=== PATIENT | male | born 1960 | race Caucasian/White ===

== ENCOUNTER 2017-04-26 12:07 | Outpatient (CLI) | payer BC ==
--- NOTE | 2017-04-26 16:42 | Diagnostic Imaging Report ---
Indication: Osteoporosis Technique: 10 mm thick slices obtained through the L2, L3, and L4 vertebral bodies. Cortical and trabecular regions of interest were drawn. The average trabecular bone mineral density was calculated. Total dose length product 51 mGycm. CTDIvol(s) 21, 21, 3, 3, 3 mGy. Dose reduction achieved using automated exposure control Comparison: 12/22/2012 Findings: The calculated bone mineral density is 97.8 mg ca-STRONG/ml. The T score is -2.9. This indicates the patient's bone mineral density is 2.9 standard deviations below that of normal 20-year-old males. The Z score is -0.51. This indicates the patient's bone mineral density is 0.51 standard deviations below that of age-matched controls Compared to the prior study, bone mineral density has declined very slightly, by 3% Impression: Patient's bone mineral density is greater than 25% below that of normal 20-year-old males. Patient is considered osteoporotic by WHO criteria. Insufficiency fracture risk is high. Patient should be considered for therapy, if not already initiated, with followup scan in one year to monitor response to therapy. Note only minimal change since prior exam of November [address] scanner at [facility] is accredited by the [employer] and the scans are performed using protocols designed to limit radiation exposure to as low as reasonably achievable to attain images of sufficient resolution adequate for diagnostic evaluation.
== END 2017-04-26 14:07 | disposition home or self-care (01) ==
LOC: CAT 12:07
DX: M81.0 Age-related osteoporosis without current pathological fracture (principal)
CPT/HCPCS: 77078

== ENCOUNTER 2017-12-06 19:00 | Emergency (ER) | payer BC ==
[~2017-12-06] VITALS: Ht 177.8 cm; Wt 77.1 kg
[2017-12-06 19:20] VITALS: BP 134/89
--- NOTE | 2017-12-06 19:41 | Diagnostic Imaging Report ---
EXAM: XR Chest, 1 View CLINICAL HISTORY: TRAUMA TECHNIQUE: Frontal view of the chest. COMPARISON: No relevant prior studies available. FINDINGS: Lungs: No consolidation. Pleural space: Reduced lung volumes with right pleural effusion/blunting of the costophrenic angle. No apparent pneumothorax. Heart: Unremarkable. No cardiomegaly. Mediastinum: Unremarkable. Bones/joints: Right rib fractures. Tubes, lines and devices: Probable chest tube on the right. Other findings: Old granulomatous disease IMPRESSION: 1. Reduced lung volumes with right pleural effusion/blunting of the costophrenic angle. No apparent pneumothorax. 2. Right rib fractures.
[2017-12-06] MEDS ORDERED: Bacitracin Oint UD TOPIC ONE (20:15)
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
[2017-12-06 20:35] VITALS: BP 134/89
== END 2017-12-06 20:35 | disposition home or self-care (01) ==
LOC: EMR 19:41
DX: Z45.89 Encounter for adjustment and management of other implanted devices (principal); S22.41XA Multiple fractures of ribs, right side, initial encounter for closed fracture; X58.XXXA Exposure to other specified factors, initial encounter; Y92.9 Unspecified place or not applicable; J94.2 Hemothorax
CPT/HCPCS: 71045; 99283

== ENCOUNTER 2017-12-07 04:04 | Emergency (ER) | payer SELFPAY ==
[~2017-12-07] VITALS: Ht 177.8 cm; Wt 77.1 kg
[2017-12-07 04:20] VITALS: BP 133/82
[2017-12-07 05:20] VITALS: BP 130/78
--- NOTE | 2017-12-07 05:26 | Diagnostic Imaging Report ---
EXAM: XR Chest, 1 View CLINICAL HISTORY: Chest pain TECHNIQUE: Frontal view of the chest. COMPARISON: December 06, 2017. FINDINGS: Enlarged cardiac silhouette with central vascular congestion. Again noted are right rib fractures with patchy atelectasis or contusion in the right lower lobe and small right effusion. Low lung volumes. No radiographic evidence of pneumothorax. IMPRESSION: Little interval change in previously noted right rib fractures and right lower lobe atelectasis/contusion and small right effusion. Enlarged cardiac silhouette with central vascular congestion.
[2017-12-07 05:41] VITALS: BP 130/78
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
== END 2017-12-07 05:45 | disposition home or self-care (01) ==
LOC: EMR 04:28
DX: S22.41XA Multiple fractures of ribs, right side, initial encounter for closed fracture (principal); X58.XXXA Exposure to other specified factors, initial encounter; Y92.9 Unspecified place or not applicable; J93.9 Pneumothorax, unspecified
CPT/HCPCS: 71045; 99283